=== PATIENT | female | born 1965 | race African-American/Black ===

== ENCOUNTER 2017-03-26 16:28 | Emergency (ER) | payer BC, OTHER ==
[~2017-03-26] VITALS: Ht 172.7 cm; Wt 116.6 kg
--- NOTE | ~2017-03-26 | CR170 ---
[facility]. [facility] A Service of [facility] & [facility] RADIOLOGY TEXT RESULTS PATIENT: NUHA HAILE LOCATION: SED : 67 UNIT #: [id number] AGE: [address]: Yonathan Hanley MD SEX: F ORDER DR: [id number] [place] [id number] E MR#: [id number] Acc #: [id number] NAME: NUHA HAILE : 1965 SEX: F STUDY DATE/TIME: 03/26/2017 17:31 UNIT: SED ROOM: STUDY DESCRIPTION: CR Knee 2 Views Rt Attending Physician: Yonathan Hanley M.D. Ordering Physician: Yonathan Hanley M.D. Primary Care Physician: Federico Blood M.D. MEDICAL IMAGING REPORT This report is preliminary unless electronic signature is present. EXAM Right knee. INDICATIONS Right knee pain 4.5 weeks. Swelling. FINDINGS Two views of the right knee compared to 03/26/2014. There is no acute fracture or dislocation. There is a small knee effusion. No foreign body. IMPRESSION Small right knee effusion. No fracture. Dictated by... oJsé Gould M.D. THIS IS AN ELECTRONICALLY VERIFIED REPORT José Gould M.D. at 03/28/2017 9:48 AM HAYLEY/sherry TD: 03/27/2017 09:16 JOB #: [id number] MEDICAL IMAGING REPORT Page 1 of 1
[2017-03-26] MEDS ORDERED: LISINOPRIL (16:47)
[2017-03-26] MEDS ORDERED: WELCHOL625 MG (16:47)
[2017-03-26] MEDS ORDERED: MEVACOR (16:47)
[2017-03-26] MEDS ORDERED: HCTZ (16:47)
== END 2017-03-26 18:38 | disposition home or self-care (01) ==
LOC: SED 16:28
DX: S86.811A Strain of other muscle(s) and tendon(s) at lower leg level, right leg, initial encounter (principal); M25.461 Effusion, right knee; I10 Essential (primary) hypertension; E78.5 Hyperlipidemia, unspecified; M19.90 Unspecified osteoarthritis, unspecified site; Z90.710 Acquired absence of both cervix and uterus; X58.XXXA Exposure to other specified factors, initial encounter
CPT/HCPCS: 29530; 73560; 99283